=== PATIENT | male | born 1950 | race Caucasian/White ===

== ENCOUNTER 2016-06-24 13:48 | Inpatient (IN) | payer OTHER ==
--- NOTE | ~2016-06-24 | HP ---
History And Physical [id number] [place]. [address] NAME: OJ LEMOS : 46 STATUS : ADM IN [facility]#: [id number] AGE: 65 ADM/REG DATE : 06/24/16 MR#: [id number] REPORT SERV DATE: 06/24/16 DICTATED BY: PJ CISNEROS DATE: 06/24/16 REPORT STATUS : Draft TRANSCRIBED BY: MODL DATE: 06/24/16 DATE OF ADMISSION: 06/24/2016 ADMISSION DIAGNOSIS: Presumptive acute myocardial infarction. HISTORY OF PRESENT ILLNESS: Mr. Lemos is a very pleasant 65-year-old male who I was asked to see in the ER for evaluation of chest pain and abnormal EKG suggestive of evolving anterior wall PR. He presented via EMS from his primary care physician's office after initially presenting there with nausea and chest discomfort. His blood pressure is severely elevated and he was tachycardic, but an EKG was suggestive of anterior ST elevations. He reports having chest pain this morning off and on, but reports no chest discomfort at the time of my evaluation. He has no history of coronary heart disease or prior PR, but does have a history of insulin- dependent diabetes, dyslipidemia, hypertension and he takes aspirin for primary prevention. He denies any recent sick contacts, fevers, chills, diarrhea, constipation, dysuria, or abdominal pain. PAST MEDICAL HISTORY: 1. Diabetes. 2. Hypertension. 3. Mood disorder. PAST SURGICAL HISTORY: The patient has a history of an appendectomy. MEDICATIONS: Office clinic med list reviewed and notable for aspirin, gabapentin, Levemir, Ativan, losartan, metformin, Phenergan, Restoril, Crestor, and venlafaxine. ALLERGIES: TO SULFA. FAMILY HISTORY: Noncontributory. REVIEW OF SYSTEMS: Per HPI. Otherwise, negative. PHYSICAL EXAMINATION: VITAL SIGNS: Tachycardic, heart rate approximately 120; hypertensive, blood pressure 200/120; and respiratory rate 18. GENERAL: Overweight male, appears his stated age, well developed, well nourished, in no apparent distress. His speech is nonlabored. HEENT: Sclerae are anicteric. Mucous membranes are moist. NECK: Supple. CARDIOVASCULAR: Regular rhythm is present. No murmurs appreciated. PULMONARY: Diminished inspiratory effort, but clear to auscultation anteriorly and laterally. History And Physical [id number] [place]. [address] NAME: OJ LEMOS : 46 STATUS : ADM IN PAT#: [id number] AGE: 65 ADM/REG DATE : 06/24/16 MR#: [id number] REPORT SERV DATE: 06/24/16 DICTATED BY: PJ CISNEROS DATE: 06/24/16 REPORT STATUS : Draft TRANSCRIBED BY: GILL DATE: 06/24/16 ABDOMEN: Soft, nondistended, and nontender. Bowel sounds are present. No rebound or guarding. EXTREMITIES: Warm with no edema. NEUROLOGIC: A and O x3. Answers questions appropriately. Moves all extremities well. LABS: Not available at the time of dictation. STUDIES: EKG timed 1318 hours demonstrates sinus tachycardia, heart rate approximately 121, ST elevation most prominent in lead V2, proximally 2.5 mm and in V1 approximately 1 mm with inverted T-waves/downsloping ST depressions in III and aVF. Cannot rule out old inferior PR as well with possible Q-waves in the inferior leads, although baseline is wandering and suboptimal. No prior EKG for comparison. IMPRESSION/RECOMMENDATIONS: 1. Chest pain with abnormal EKG suggestive of acute myocardial infarction. 2. Diabetes. 3. Hypertensive urgency/emergency. Based on the patient's presentation EKG, I agree that emergent cardiac cath with possible primary PCI depending on the findings is the next appropriate step. I have discussed this with the patient, he is agreeable to proceed. We will administer medications in the chemical processing laborer to assist with blood pressure. Revascularization may be indicated based on the findings. Additional recommendations pending initial clinical course. TOMEKA/GILL Pj Cisneros MD / [id number] CC: Pj Cisneros MD
--- NOTE | ~2016-06-24 | DS ---
Discharge Summary [facility] [address] [place]. [address] NAME: OJ ALVAREZ : 46 STATUS : DIS IN PAT#: [id number] AGE: 66 ADM/REG DATE : 06/24/16 MR#: [id number] REPORT SERV DATE: 07/05/16 DICTATED BY: PJ CISNEROS DATE: 07/05/16 REPORT STATUS : Draft TRANSCRIBED BY: GILL DATE: 07/05/16 Data Collection from hospitalization DISCHARGE DIAGNOSES: 1. Myocardial infarction - acute. 2. Coronary artery disease. 3. Ischemic cardiomyopathy/heart failure. 4. Diabetes mellitus. 5. Hypertension. 6. Mood disorder. CONSULTATIONS: Ismael Patel NP. PROCEDURES PERFORMED: Cardiac catheterization, 06/24/2016. DISCHARGE MEDICATIONS: Aspirin 81 mg daily; Coreg 3.125 mg twice a day; Nexium 20 mg daily as needed; Neurontin 100 mg at bedtime; Levemir 60 units subcutaneously twice a day, Humalog 75/25, 1 to 15 units subcutaneously before meals and at bedtime; Humalog 75/25 10 units subcutaneously before meals; Ativan 1 mg twice a day as needed; Cozaar 25 mg daily; Singulair 10 mg daily as needed; Phenergan 25 mg per rectum every 12 hours as needed; Crestor 40 mg daily; Aldactone 12.5 mg daily; Restoril 30 mg at bedtime as needed; Brilinta 90 mg twice a day; and Effexor 75 mg twice a day. He was instructed not to continue metformin. CONDITION ON DISCHARGE: Stable. DISPOSITION: The patient was discharged home on a low-cholesterol, low-sodium 1800-calorie diabetic diet with no concentrated carbohydrates and activities as instructed. He would follow up with me, 08/06/2016. He would follow up with Dr. Apolinar Donovan, 07/02/2016. HOSPITAL COURSE: This is a 66-year-old man who presented to the emergency room via EMS for evaluation of chest pain and abnormal EKG suggestive of evolving anterior wall myocardial infarction. He presented via EMS from his primary care physician's office after initially presenting there with nausea and chest discomfort. His blood pressure was severely elevated and he was tachycardic but an EKG was not suggestive of anterior ST elevation. He reports having chest pain that morning on an off, but reported no chest discomfort at the time of this evaluation. He has no history of coronary heart disease or prior myocardial infarction. He does have a history of insulin-dependent diabetes, dyslipidemia, hypertension, and he takes aspirin for primary prevention. He was admitted to the hospital at this time for further evaluation and treatment. Upon admission, he was felt to have an abnormal EKG that was suggestive of acute myocardial infarction. Based on the patient's presentation EKG, it was felt that emergent cardiac catheterization with possible with primary percutaneous coronary intervention depending on the findings was the next appropriate step. This was discussed with the patient who was agreeable to proceed. He was taken to the cardiac helper animal laboratory where he underwent the above- mentioned procedure. He tolerated this well, and there were no complications. He was found to have 100% proximal LAD stenosis. Aspiration thrombectomy - PTCA was performed. The Discharge Summary [address] [address] NAME: OJ ALVAREZ : 46 STATUS : DIS IN PAT#: [id number] AGE: 66 ADM/REG DATE : 06/24/16 MR#: [id number] REPORT SERV DATE: 07/05/16 DICTATED BY: PJ CISNEROS DATE: 07/05/16 REPORT STATUS : Draft TRANSCRIBED BY: GILL DATE: 07/05/16 right coronary artery as well as left circumflex were not obstructed. He had severe left ventricular dysfunction with anterior akinesis and ejection fraction of 30%. He was seen in consultation by Steve Patel. The patient still complained of some mild chest pain. He has been asked to see the patient regarding diabetes management. In 03/2016, his hemoglobin A1c was 10.6. NovoLog was added before meals. Metformin was on hold. He was going to undergo diabetes education. Sliding scale insulin was increased to level 2. Brilinta was continued as well as Effexor. The following day, creatinine level was 0.86, white count was 16.8, Aldactone was added to his regimen, an echocardiogram was performed. Blood sugar control was discussed with the patient. Hemoglobin A1c was going to be checked. Levemir was increased. The patient said at home his blood sugars run greater than 300. He said he had a hard time controlling his sugars and that he preferred use of pins. On 06/26/2016, echocardiogram had been performed and showed left ventricular ejection fraction of 30%. He had no thrombus. He had no chest pain. He did have mild dyspnea. He had no edema. Cautious up-titration of Coreg was going to be performed. It was felt that a LifeVest was indicated if the patient was amenable. He was evaluated by Physical Therapy. His blood sugar was coming under better control. The following day, he had no dyspnea or chest pain. His lungs were clear. He was in no acute distress. A LifeVest was going to be placed. Occupational Therapy evaluated the patient. Discharge planning was performed. Patient compliance was discussed. He underwent diabetes education. On 06/28/2016, discharge instructions were given. Due to his improved and stable condition, he was discharged home with the above-stated instructions. Information collected by: Giuliana Ly I submit the above information as my discharge summary. TG/MODL Pj Cisneros MD / [id number] CC: MD Apolinar Guthrie DO Gregory J. Nieckula, DO
[~2016-06-24 13:48] MED LIST: ACIPHEX PO; AMLODIPINE; GLUCOPHAGE1000 MG PO; GLUCXL10 PO; HYZAAR 100/25 T1 TAB PO; NORV5 PO; WELLSR150 PO
[2016-06-24] MEDS ORDERED: ATV1 PO (13:58)
[2016-06-24] MEDS ORDERED: COZAAR100 MG PO (13:58)
[2016-06-24] MEDS ORDERED: LEVEMFLXPN SC (13:58)
[2016-06-24] MEDS ORDERED: NEUR100 PO (13:58)
[2016-06-24] MEDS ORDERED: GLUCPH PO (13:59)
[2016-06-24] MEDS ORDERED: SINGULAIR1 PO (13:59)
[2016-06-24] MEDS ORDERED: PR25R PR (13:59)
[2016-06-24] MEDS ORDERED: CRESTOR10 PO (14:00)
[2016-06-24] MEDS ORDERED: EFFEX75 PO (14:00)
[2016-06-24] MEDS ORDERED: NEXIUM20 M1 PO (14:00)
[2016-06-24] MEDS ORDERED: RESTORIL30 MG PO (14:00)
[2016-06-24 14:03] LABS: BASOPHILS 0.2 %; BASOPHILS ABSOLUTE 0.02 10/3/uL (0.0-0.16); EOSINOPHILS 0.6 %; EOSINOPHILS ABSOLUTE 0.07 10/3/uL (0.0-0.53); HEMATOCRIT 47.6 % (40.0-51.0); HEMOGLOBIN 16.3 g/dL (13.6-17.8); IMMATURE GRANULOCYTES 0.3 %; IMMATURE GRANULOCYTES ABSOLUTE 0.04 10/3/uL (0.0-0.11); LYMPHOCYTES 26.8 %; LYMPHOCYTES ABSOLUTE 3.11 10/3/uL (0.67-4.30); MEAN CORPUSCULAR HEMOGLOB 27.6 pg (26.0-34.0); MEAN PLATELET VOLUME 10.3 fL (9.2-13.0); MONOCYTES 5.1 %; MONOCYTES ABSOLUTE 0.59 10/3/uL (0.21-1.20); NEUTROPHILS ABSOLUTE 7.78 10/3/uL (2.02-8.40); RBC DISTRIBUTION WIDTH 13.1 % (12.0-16.0); RED CELL COUNT 5.91 10/6/uL (4.7-6.1)
[2016-06-24 14:04] LABS: ER CBC TAT 0 Hrs 08 Mins; MANUAL DIFF NO %; MEAN CORPUS HGB CONC 34.2 g/dL (32.0-36.0); MEAN CORPUSCULAR VOLUME 80.5 fL (80-100); PLATELET COUNT 318 10/3/uL (150-400); WHITE BLOOD CELLS 11.6 10/3/uL (4.5-10.5)
[2016-06-24 14:11] LABS: INTERNATIONAL NORMAL RATI 1.1 UNITS (-); PARTIAL THROMBO TIME 29.2 SEC (22.5-37.2); PROTIME (NOT ORD) 14.1 SEC (12.0-14.5)
[2016-06-24 14:22] LABS: BUN (BLOOD UREA NITROGEN) 15 MG/DL (6-23); CALCIUM, SERUM 10.3 MG/DL (8.5-10.4); CHLORIDE, SERUM 100 MMOL/L (96-112); CREATININE 1.02 MG/DL (0.70-1.30); GFR AFRICAN AMERICAN 88 ML/MIN (>=60); GFR NON AFRICAN AMERICAN 76 ML/MIN (>=60); POTASSIUM, SERUM 4.4 MMOL/L (3.5-5.3); SODIUM, SERUM 135 MMOL/L (135-148)
[2016-06-24 14:25] LABS: CHEST PAIN PROFILE TAT 0 Hrs 29 Mins; CO2 (CARBON DIOXIDE) 22 MMOL/L (24-34); GLUCOSE, SERUM 396 MG/DL (60-99); TROPONIN I 0.13 NG/ML (<0.05)
[2016-06-24 22:23] LABS: CK-MB 174.6 NG/ML; CKMB INDEX (NOT ORD) 5.2
[2016-06-25 03:27] LABS: BASOPHILS 0.1 %; BASOPHILS ABSOLUTE 0.02 10/3/uL (0.0-0.16); EOSINOPHILS 0.1 %; EOSINOPHILS ABSOLUTE 0.01 10/3/uL (0.0-0.53); HEMOGLOBIN 15.9 g/dL (13.6-17.8); IMMATURE GRANULOCYTES 0.3 %; IMMATURE GRANULOCYTES ABSOLUTE 0.05 10/3/uL (0.0-0.11); LYMPHOCYTES 16.6 %; MEAN CORPUS HGB CONC 34.6 g/dL (32.0-36.0); MEAN CORPUSCULAR HEMOGLOB 28.2 pg (26.0-34.0); MEAN CORPUSCULAR VOLUME 81.6 fL (80-100); MEAN PLATELET VOLUME 10.1 fL (9.2-13.0); MONOCYTES 7.1 %; MONOCYTES ABSOLUTE 1.19 10/3/uL (0.21-1.20); NEUTROPHILS 75.8 %; NEUTROPHILS ABSOLUTE 12.76 10/3/uL (2.02-8.40); PLATELET COUNT 310 10/3/uL (150-400); RBC DISTRIBUTION WIDTH 13.3 % (12.0-16.0); RED CELL COUNT 5.64 10/6/uL (4.7-6.1)
[2016-06-25 03:28] LABS: MANUAL DIFF NO %; WHITE BLOOD CELLS 16.8 10/3/uL (4.5-10.5)
[2016-06-25 03:46] LABS: BUN (BLOOD UREA NITROGEN) 15 MG/DL (6-23); CHLORIDE, SERUM 102 MMOL/L (96-112); CHOL/HDL RATIO(NOT ORDER) 5.3 (0-5); CHOLESTEROL 263 MG/DL (< 200); CO2 (CARBON DIOXIDE) 21 MMOL/L (24-34); CREATININE 0.86 MG/DL (0.70-1.30); GFR AFRICAN AMERICAN 103 ML/MIN (>=60); GFR NON AFRICAN AMERICAN 89 ML/MIN (>=60); HDL CHOLESTEROL 50 MG/DL (> 39); LDL CHOLESTEROL 172 MG/DL (< 130); NON-HDL CHOLESTEROL 213 MG/DL (< 160); POTASSIUM, SERUM 4.1 MMOL/L (3.5-5.3); SODIUM, SERUM 136 MMOL/L (135-148); TRIGLYCERIDE 207 MG/DL (< 150)
[2016-06-25 03:47] LABS: CALCIUM, SERUM 9.3 MG/DL (8.5-10.4); GLUCOSE, SERUM 261 MG/DL (60-99)
[2016-06-25 03:56] LABS: CK-MB 146.4 NG/ML
[2016-06-25 03:56] LABS: CK-MB 148.3 NG/ML
[2016-06-25 04:01] LABS: CKMB INDEX (NOT ORD) 5.4
[2016-06-25 04:01] LABS: CKMB INDEX (NOT ORD) 5.6
[2016-06-25 09:15] LABS: CK-MB 112.2 NG/ML; CKMB INDEX (NOT ORD) 5.9
[2016-06-25 17:25] LABS: CK-MB 58.7 NG/ML
[2016-06-25 17:26] LABS: CKMB INDEX (NOT ORD) 4.8
[2016-06-26 06:03] LABS: HEMATOCRIT 43.7 % (40.0-51.0); HEMOGLOBIN 14.9 g/dL (13.6-17.8); MEAN CORPUS HGB CONC 34.1 g/dL (32.0-36.0); MEAN CORPUSCULAR HEMOGLOB 28.2 pg (26.0-34.0); MEAN CORPUSCULAR VOLUME 82.8 fL (80-100); PLATELET COUNT 259 10/3/uL (150-400); RBC DISTRIBUTION WIDTH 13.5 % (12.0-16.0); RED CELL COUNT 5.28 10/6/uL (4.7-6.1); WHITE BLOOD CELLS 13.2 10/3/uL (4.5-10.5)
[2016-06-26 06:04] LABS: MANUAL DIFF YES %
[2016-06-26 06:19] LABS: CALCIUM, SERUM 8.8 MG/DL (8.5-10.4); CHLORIDE, SERUM 103 MMOL/L (96-112); CO2 (CARBON DIOXIDE) 20 MMOL/L (24-34); GFR AFRICAN AMERICAN 89 ML/MIN (>=60); GFR NON AFRICAN AMERICAN 77 ML/MIN (>=60); PHOSPHORUS, SERUM 3.1 MG/DL (2.5-4.5); POTASSIUM, SERUM 4.1 MMOL/L (3.5-5.3); SODIUM, SERUM 136 MMOL/L (135-148)
[2016-06-26 06:20] LABS: BUN (BLOOD UREA NITROGEN) 27 MG/DL (6-23); GLUCOSE, SERUM 162 MG/DL (60-99)
[2016-06-26 06:32] LABS: BAND NEUTROPHILS 1 %; EOSINOPHILS 1 %; EOSINOPHILS ABSOLUTE (CALC) 0.13 10/3/uL (0.0-0.53); LYMPHOCYTES 26 %; LYMPHOCYTES ABSOLUTE (CALC) 3.43 10/3/uL (0.67-4.30); MONOCYTES 7 %; MONOCYTES ABSOLUTE (CALC) 0.92 10/3/uL (0.21-1.20); NEUTROPHILS ABSOLUTE (CALC) 8.71 10/3/uL (2.02-8.40); PLATELET ESTIMATE ADQ (ADEQUATE); SEGMENTED NEUTROPHIL (0) 65 %; TOTAL NUCLEATED CELLS 100
[2016-06-26 06:33] LABS: RBC MORPHOLOGY NORM (NORMAL)
[2016-06-27 06:42] LABS: BASOPHILS 0.3 %; BASOPHILS ABSOLUTE 0.03 10/3/uL (0.0-0.16); EOSINOPHILS 2.6 %; EOSINOPHILS ABSOLUTE 0.31 10/3/uL (0.0-0.53); HEMATOCRIT 43.9 % (40.0-51.0); HEMOGLOBIN 14.8 g/dL (13.6-17.8); IMMATURE GRANULOCYTES 0.4 %; IMMATURE GRANULOCYTES ABSOLUTE 0.05 10/3/uL (0.0-0.11); LYMPHOCYTES 26.8 %; LYMPHOCYTES ABSOLUTE 3.17 10/3/uL (0.67-4.30); MEAN CORPUS HGB CONC 33.7 g/dL (32.0-36.0); MEAN CORPUSCULAR HEMOGLOB 28.1 pg (26.0-34.0); MEAN CORPUSCULAR VOLUME 83.3 fL (80-100); MONOCYTES 7.8 %; MONOCYTES ABSOLUTE 0.92 10/3/uL (0.21-1.20); NEUTROPHILS 62.1 %; NEUTROPHILS ABSOLUTE 7.36 10/3/uL (2.02-8.40); PLATELET COUNT 281 10/3/uL (150-400); RBC DISTRIBUTION WIDTH 13.5 % (12.0-16.0); RED CELL COUNT 5.27 10/6/uL (4.7-6.1); WHITE BLOOD CELLS 11.8 10/3/uL (4.5-10.5)
[2016-06-27 06:45] LABS: MANUAL DIFF NO %
[2016-06-27 06:58] LABS: BUN (BLOOD UREA NITROGEN) 24 MG/DL (6-23); CALCIUM, SERUM 8.8 MG/DL (8.5-10.4); CHLORIDE, SERUM 103 MMOL/L (96-112); CREATININE 1.03 MG/DL (0.70-1.30); GFR AFRICAN AMERICAN 86 ML/MIN (>=60); GFR NON AFRICAN AMERICAN 74 ML/MIN (>=60); POTASSIUM, SERUM 3.7 MMOL/L (3.5-5.3); SODIUM, SERUM 140 MMOL/L (135-148)
[2016-06-27 06:59] LABS: CO2 (CARBON DIOXIDE) 27 MMOL/L (24-34); GLUCOSE, SERUM 84 MG/DL (60-99)
[2016-06-27] MEDS ORDERED: ASAB PO (16:33)
[2016-06-27] MEDS ORDERED: COREG3 PO (16:33)
[2016-06-27] MEDS ORDERED: COZ25 PO (16:34)
[2016-06-27] MEDS ORDERED: SPIRO25 PO (16:35)
[2016-06-27] MEDS ORDERED: BRILINTA90 MG PO (16:35)
[2016-06-27] MEDS ORDERED: CRESTOR40 MG PO (16:36)
[2016-06-27] MEDS ORDERED: HUMAMIXPEN SC ×2 (16:38→16:42)
[2016-06-27] MEDS ORDERED: LEVEMFLXPN SC (16:40)
[2016-06-28] MEDS ORDERED: CRESTOR40 MG PO (09:41)
== END 2016-06-28 11:08 | disposition home or self-care (01) | DRG 246 ==
LOC: ER 13:48 → SSU2 13:52 → CCU 15:35 → 6NO 06-26 11:40
PROVIDERS: Emergency Medicine; Internal Medicine Cardiovascular Disease
DX: I21.09 ST elevation (STEMI) myocardial infarction involving other coronary artery of anterior wall (principal); I50.23 Acute on chronic systolic (congestive) heart failure; I16.1 Hypertensive emergency; I25.10 Atherosclerotic heart disease of native coronary artery without angina pectoris; E78.5 Hyperlipidemia, unspecified; I11.0 Hypertensive heart disease with heart failure; E78.00 Pure hypercholesterolemia, unspecified; Z88.2 Allergy status to sulfonamides; E66.9 Obesity, unspecified; I25.5 Ischemic cardiomyopathy; G47.33 Obstructive sleep apnea (adult) (pediatric); E11.65 Type 2 diabetes mellitus with hyperglycemia; F32.9 Major depressive disorder, single episode, unspecified; F41.9 Anxiety disorder, unspecified; Z87.891 Personal history of nicotine dependence; F39 Unspecified mood [affective] disorder; Z79.82 Long term (current) use of aspirin; Z79.84 Long term (current) use of oral hypoglycemic drugs
CPT/HCPCS: 71010; 80048; 80061; 80069; 82550; 82553; 82962; 83036; 83735; 84484; 85025; 85610; 85730; 87641; 93005; 93306; 93458; 97161-GP; 97165-GO; 99152; 99153; 99291; A9270-GY; C1725; C1757; C1760; C1769; C1874; C9606; J0583; J2250; J2270; J2405; J2550; J3010; Q9967